=== PATIENT | female | born 1955 | race Caucasian/White ===

== ENCOUNTER 2017-03-13 11:36 | Emergency (ER) | payer MEDICARE ==
[~2017-03-13] VITALS: Ht 162.6 cm; Wt 40.8 kg
[2017-03-13] MEDS: methylPREDNISolone SOD SUCC PF 125 MG/2 ML VIAL. IV ONE (12:38)
[2017-03-13] MEDS: IV NORMAL SALINE 1000ML BAG 1,000 ML IV SCH (12:38)
[2017-03-13] MEDS: IPRATRPIUM/ALBUTEROL 0.5/2.5MG 3 ML NEBU. NEB ONE (12:41)
[2017-03-13] MEDS: MAGNESIUM SULFATE 1GM 100 ML IV ONE (12:41)
--- NOTE | 2017-03-13 12:41 | EKG ---
[facility] [address] [place] [address] Test Date: 2017-03-13 Test Time: 11:43:42 Pat Name: KASIA TOVAR Department: Room: Gender: F [employer] Apprentice: : 1955 Requested By: PONCE MICHEL Order Number: [id number] Reading MD: Measurements Intervals [place] Rate: 58 P: 48 CT: 164 QRS: 69 QRSD: 82 T: -15 QT: 478 QTc: 473 Interpretive Statements SINUS RHYTHM QRS(T) CONTOUR ABNORMALITY CONSIDER ANTEROLATERAL MYOCARDIAL DAMAGE PROLONGED QT RI6.01 Unconfirmed report No previous ECG available for comparison
[2017-03-13 12:47] LABS: BASO # 0.1 x10^3/uL (0.0-0.2); BASO % 1 % (0-3); EOS % 2 % (0-3); HEMATOCRIT 43.5 % (36.0-47.0); HEMOGLOBIN 14.5 g/dL (12.0-15.5); LYMPH # 1.6 x10^3/uL (1.0-4.8); LYMPH % 18 % (24-48); MEAN CORPUSCULAR HEMOGLOBIN 30 pg (25-35); MEAN CORPUSCULAR HGB CONC 33 g/dL (31-37); MEAN CORPUSCULAR VOLUME 92 fL (79-100); MONO % 9 % (0-9); NEUT % 70 % (31-73); PLATELET COUNT 179 x10^3/uL (140-400); RED BLOOD COUNT 4.75 x10^6/uL (3.50-5.40); RED CELL DISTRIBUTION WIDTH 14.7 % (11.5-14.5)
--- NOTE | 2017-03-13 12:51 | RAD ---
Chest x-ray Indication: Worsening shortness of breath for one week Technique: Portable AP upright chest x-ray Comparison: None Findings: Heart is normal in size. Lungs are clear of focal consolidation. Mild prominence of interstitial markings noted throughout lungs. No pneumothorax or pleural effusion. Visualized bony thorax is within normal limits. Impression: Mild prominence of interstitial markings throughout lungs may represent viral or atypical infection. Correlate with symptoms.
[2017-03-13 13:00] LABS: CALCIUM 8.5 mg/dL (8.5-10.1); CREATININE 1.5 mg/dL (0.6-1.0); GFR 35.3; POTASSIUM 4.2 mmol/L (3.5-5.1)
[2017-03-13 13:02] LABS: ALBUMIN 3.7 g/dL (3.4-5.0); ALBUMIN/GLOBULIN RATIO 1.1 (1.0-1.7); TOTAL BILIRUBIN 0.2 mg/dL (0.2-1.0); TOTAL PROTEIN 7.2 g/dL (6.4-8.2)
[2017-03-13 13:15] LABS: CKMB MASS < 0.5 ng/mL (0.0-3.6); CREATINE KINASE 56 U/L (26-192)
--- NOTE | 2017-03-13 13:25 | PHYS DOC ---
Past Medical History Past Medical History: Asthma, Bronchitis, COPD, High Cholesterol, Hypertension Past Surgical History: Cholecystectomy, Hysterectomy, Tonsillectomy Alcohol Use: Rarely Drug Use: Marijuana Adult General Chief Complaint Chief Complaint: SHORTNESS OF BREATH HPI HPI Patient is a 61 year old female who presents with complaint of shortness breath and cough. Patient states that her symptoms have been worsening over the past 2 weeks. Patient states that they became severely worse over the past 2 days. Patient states that she has history of asthma. Patient recently moved to the [facility] from [place]. Patient states that she has been out of her medications for the past 2 weeks which she attributes to her worsening symptoms. Patient denies any associated fevers. Patient has had productive cough of greenish sputum. Patient denies chest pain or vomiting. Patient states she has not taken any other medications to help with her symptoms at this time. Patient states that she has become very short of breath with normal walking. Review of Systems Review of Systems Constitutional: Denies fever or chills [] Eyes: Denies change in visual acuity, redness, or eye pain [] HENT: Denies nasal congestion or sore throat [] Respiratory: Productive cough, shortness of breath[] Cardiovascular: Denies chest pain or edema[] GI: Denies abdominal pain, nausea, vomiting, bloody stools or diarrhea [] : Denies dysuria or hematuria [] Musculoskeletal: Denies back pain or joint pain [] Integument: Denies rash or skin lesions [] Neurologic: Denies headache, focal weakness or sensory changes [] Current Medications Current Medications Current Medications Medications (Trade) Dose Ordered Sig/[facility] Start Time Stop Time Status Last Admin Dose Admin Albuterol/ Ipratropium (Duoneb) 6 ml 1X ONCE 03/13/17 12:30 03/13/17 12:31 DC 03/13/17 12:41 6 ML Magnesium Sulfate/ Dextrose 100 ml @ 100 mls/hr 1X ONCE 03/13/17 12:30 03/13/17 13:29 DC 03/13/17 12:41 100 MLS/HR Methylprednisolone Sodium Succinate (SOLU-Medrol 125MG VIAL) 125 mg 1X ONCE 03/13/17 12:30 03/13/17 12:31 DC 03/13/17 12:38 125 MG Sodium Chloride 1,000 ml @ 150 mls/hr [id number] 03/13/17 12:22 03/13/17 19:01 03/13/17 12:38 150 MLS/HR Allergies Allergies Allergies Coded Allergies Type Severity Reaction Last Updated Verified codeine Allergy Intermediate "RASH" 03/13/17 No Physical Exam Physical Exam Constitutional: Alert, afebrile, appears in mild to moderate respiratory distress. [] HENT: Normocephalic, atraumatic, bilateral external ears normal, oropharynx moist, no oral exudates, nose normal. [] Eyes: PERRLA, EOMI, conjunctiva normal, no discharge. [] Neck: Normal range of motion, no tenderness, supple, no stridor. [] Cardiovascular:Heart rate regular rhythm, no murmur [] Lungs & Thorax: Prolonged expiratory phase, extra wheezes bilaterally, mild accessory muscle usage present, no rales.[] Abdomen: Bowel sounds normal, soft, no tenderness, no masses, no pulsatile masses. [] Skin: Warm, dry, no erythema, no rash. [] Back: No tenderness, no CVA tenderness. [] Extremities: No tenderness, no cyanosis, no clubbing, ROM intact, no edema. [] Neurologic: Alert and oriented X 3, normal motor function, normal sensory function, no focal deficits noted. [] Current Patient Data Vital Signs Vital Signs Date Time Temp Pulse Resp B/P (MAP) Pulse Ox O2 Delivery O2 Flow Rate FiO2 03/13/17 13:49 61 20 122/72 (89) 91 Room Air 03/13/17 11:45 97.5 97.5 Lab Values Laboratory Tests Test 03/13/17 11:55 White Blood Count 9.0 x10^3/uL (4.0-11.0) Red Blood Count 4.75 x10^6/uL (3.50-5.40) Hemoglobin 14.5 g/dL (12.0-15.5) Hematocrit 43.5 % (36.0-47.0) Mean Corpuscular Volume 92 fL (79-100) Mean Corpuscular Hemoglobin 30 pg (25-35) Mean Corpuscular Hemoglobin Concent 33 g/dL (31-37) Red Cell Distribution Width 14.7 % (11.5-14.5) H Platelet Count 179 x10^3/uL (140-400) Neutrophils (%) (Auto) 70 % (31-73) Lymphocytes (%) (Auto) 18 % (24-48) L Monocytes (%) (Auto) 9 % (0-9) Eosinophils (%) (Auto) 2 % (0-3) Basophils (%) (Auto) 1 % (0-3) Neutrophils # (Auto) 6.3 x10^3uL (1.8-7.7) Lymphocytes # (Auto) 1.6 x10^3/uL (1.0-4.8) Monocytes # (Auto) 0.8 x10^3/uL (0.0-1.1) Eosinophils # (Auto) 0.2 x10^3/uL (0.0-0.7) Basophils # (Auto) 0.1 x10^3/uL (0.0-0.2) Sodium Level 142 mmol/L (136-145) Potassium Level 4.2 mmol/L (3.5-5.1) Chloride Level 105 mmol/L (98-107) Carbon Dioxide Level 33 mmol/L (21-32) H Anion Gap 4 (6-14) L Blood Urea Nitrogen 22 mg/dL (7-20) H Creatinine 1.5 mg/dL (0.6-1.0) H Estimated GFR (Cockcroft-Gault) 35.3 BUN/Creatinine Ratio 15 (6-20) Glucose Level 83 mg/dL (70-99) Calcium Level 8.5 mg/dL (8.5-10.1) Total Bilirubin 0.2 mg/dL (0.2-1.0) Aspartate Amino Transferase (AST) 17 U/L (15-37) Alanine Aminotransferase (ALT) 26 U/L (14-59) Alkaline Phosphatase 118 U/L (46-116) H Creatine Kinase 56 U/L (26-192) Creatine Kinase MB (Mass) < 0.5 ng/mL (0.0-3.6) Creatine Kinase MB Relative Index % (0-4) Troponin I Quantitative < 0.017 ng/mL (0.000-0.055) NU-Tue-T-Type Natriuretic Peptide 424 pg/mL (0-124) H Total Protein 7.2 g/dL (6.4-8.2) Albumin 3.7 g/dL (3.4-5.0) Albumin/Globulin Ratio 1.1 (1.0-1.7) Laboratory Tests 03/13/17 11:55 Laboratory Tests 03/13/17 11:55 EKG EKG Interpreted by me: Heart rate 58, sinus rhythm, normal intervals, normal axis, no acute ST/T-wave abnormalities present[] Radiology/Procedures Radiology/Procedures [facility] [address] [place] [address] IMAGING REPORT Signed PATIENT: KASIA TOVAR ACCOUNT: [id number] : 1955 LOCATION: ER AGE: 61 SEX: F EXAM STATUS: REG ER ORD. PHYSICIAN: PONCE MICHEL MD REASON: shortness of breath PROCEDURE: PORTABLE CHEST 1V Chest x-ray Indication: Worsening shortness of breath for one week Technique: Portable AP upright chest x-ray Comparison: None Findings: Heart is normal in size. Lungs are clear of focal consolidation. Mild prominence of interstitial markings noted throughout lungs. No pneumothorax or pleural effusion. Visualized bony thorax is within normal limits. Impression: Mild prominence of interstitial markings throughout lungs may represent viral or atypical infection. Correlate with symptoms. DICTATED and SIGNED BY: YOHANNES RANDHAWA DO DATE: 03/13/17 1246 CC: PONCE MICHEL MD; GRAEME SALAZAR MD ~ [] Course & Med Decision Making Course & Med Decision Making Pertinent Labs and Imaging studies reviewed. (See chart for details) Patient received 2 DuoNeb treatments and IV Solu-Medrol in the emergency department. On reevaluation, patient states that she feels much better at this time. The patient was able to ambulate in the emergency department with no worsening shortness of breath symptoms. Patient's O2 sats remained above 91% after ambulation. The patient is appropriate for outpatient treatment which the patient stated she would prefer at this time. Patient will continue on oral prednisone and albuterol for treatment of acute exacerbation of her asthma. Advised follow-up in the next 3-5 days with primary doctor for reevaluation. Advised return emergency department for any worsening symptoms. Patient voiced understanding and in agreement with treatment plan. Dragon Disclaimer Dragon Disclaimer This electronic medical record was generated, in whole or in part, using a voice recognition dictation system. Departure Departure Impression: Primary Impression: Acute asthma exacerbation Disposition: 01 HOME, SELF-CARE Condition: IMPROVED Referrals: GRAEME SALAZAR MD (PCP) Patient Instructions: Asthma, Adult Additional Instructions: Follow-up with your primary doctor in the next 3-5 days for reevaluation. Return to emergency department for any worsening symptoms. Scripts Prednisone (PREDNISONE) 10 Mg Tablet 10 MG PO UD for PREDNISONE TAPER, #39 TAB 0 Refills Take 3 tablets by mouth twice a day for 3 days, then take 2 tablets by mouth twice a day for 3 days, then take 1 tablet by mouth twice a day for 3 days, then take 1 tablet by mouth daily x 3 days, then stop. Prov: PONCE MICHEL MD 03/13/17 Albuterol Sulfate (VENTOLIN HFA INHALER) 18 Gm Hfa.aer.ad 2 PUFF INH Q4HRS Y for WHEEZING, #1 INHALER 0 Refills Prov: PONCE MICHEL MD 03/13/17 Problem Qualifiers Primary Impression: Acute asthma exacerbation Asthma severity: moderate Asthma persistence: persistent Qualified Codes: J45.41 - Moderate persistent asthma with (acute) exacerbation PONCE MICHEL MD Mar 13, 2017 13:25
[2017-03-13 13:49] VITALS: BP 122/72
[2017-03-13] MEDS ORDERED: VENTOLIN HFA18 GM INH (13:50)
[2017-03-13] MEDS ORDERED: PRED-220 PO (13:50)
== END 2017-03-13 14:08 | disposition home or self-care (01) ==
LOC: ER 11:36
DX: J45.41 Moderate persistent asthma with (acute) exacerbation (principal); I10 Essential (primary) hypertension; E78.00 Pure hypercholesterolemia, unspecified; J44.9 Chronic obstructive pulmonary disease, unspecified; Z90.710 Acquired absence of both cervix and uterus; Z90.49 Acquired absence of other specified parts of digestive tract; Z88.5 Allergy status to narcotic agent
CPT/HCPCS: 36415; 71010; 80053; 82553; 83880; 84484; 85025; 93005; 94250; 94640; 96365; 96375; 99285; J2930; J3475; J7030; J7620